=== PATIENT | female | born 1955 | race Two or more races ===

== ENCOUNTER 2017-10-08 00:31 | Emergency (ER) | payer OTHER ==
[~2017-10-08] VITALS: Ht 165.1 cm; Wt 81.6 kg
--- NOTE | 2017-10-08 00:35 | NUR ---
PT AMBULATED TO ER C/O HEADACHE, NECK PAIN, BACK PAIN, AND LEFT SHOUDLER PAIN. PT STATED SHE WAS AT WORK WHEN SHE SLIPPED AND FELL WHILE TRYING TO REACH FOR SOMETHING ABOVE AND HTI HER HEAD ON THE FLOOR. PT ALERT AND ORIENTED X 4. PT NOT VOMITING. PT BREATHING UNLABORED.
--- NOTE | 2017-10-08 00:40 | NUR ---
DR. PONCE AT PT BEDSIDE FOR MSE.
[2017-10-08] MEDS ORDERED: ONDANSETRON 4 MG/2 ML VIAL ONE ×2 (00:48→02:43)
[2017-10-08] MEDS ORDERED: MORPHINE SULFATE 4 MG/1 ML DISP.SYRIN ONE ×3 (00:55→02:42)
[2017-10-08] MEDS ORDERED: MORPHINE SULFATE 2 MG/1 ML DISP.SYRIN IV ONE (01:00)
[2017-10-08] MEDS ORDERED: ONDANSETRON 4 MG/2 ML VIAL IV ONE ×2 (01:00→02:45)
--- NOTE | 2017-10-08 01:00 | NUR ---
LAB AT BEDSIDE FOR BLOOD DRAW
--- NOTE | 2017-10-08 01:09 | NUR ---
PT TAKEN TO RADIOLOGY FOR CT. ACCOMPANIED BY JOHN NUNES.
[2017-10-08 01:16] LABS: BASOPHILS % (AUTO) 0.7 % (0.0-2.0); EOSINOPHILS # (AUTO) 0.6 K/uL (0.0-0.7); EOSINOPHILS % (AUTO) 8.5 % (0.0-7.0); HEMATOCRIT 39.2 % (31.2-41.9); HEMOGLOBIN 13.1 g/dL (10.9-14.3); LYMPHOCYTES # (AUTO) 2.4 K/uL (20.0-40.0); LYMPHOCYTES % (AUTO) 32.1 % (20.5-51.5); MEAN CORPUSCULAR HEMOGLOBIN 28.3 uug (24.7-32.8); MEAN CORPUSCULAR HGB CONC 34 g/dL (32.3-35.6); MEAN CORPUSCULAR VOLUME 84.6 fL (75.5-95.3); MONOCYTES # (AUTO) 0.5 K/uL (2.0-10.0); MONOCYTES % (AUTO) 6.9 % (0.0-11.0); NEUTROPHILS # (AUTO) 3.9 K/uL (1.8-8.9); NEUTROPHILS % (AUTO) 51.8 % (38.5-71.5); PLATELET COUNT (AUTO) 74 K/uL (179-408); RED BLOOD CELL COUNT(AUTO) 4.63 MIL/uL (3.63-4.92); WHITE BLOOD COUNT (AUTO) 7.4 K/uL (3.8-11.8)
[2017-10-08 01:26] LABS: CREATININE 0.7 mg/dL (0.6-1.3); POTASSIUM 3.6 mmol/L (3.5-5.1)
--- NOTE | 2017-10-08 01:56 | NUR ---
DR. PONCE AT BEDSIDE FOR REASSESSMENT.
[2017-10-08] MEDS ORDERED: MORPHINE SULFATE 4 MG/1 ML DISP.SYRIN IV ONE ×2 (02:00→02:45)
--- NOTE | 2017-10-08 02:05 | NUR ---
XRAY AT BEDSIDE FOR XRAY OF LEFT SHOULDER
[2017-10-08 02:27] LABS: EOSINOPHILS % (MANUAL) 10 % (0-8); LYMPHOCYTES % (MANUAL) 33 % (20-40); MONOCYTES % (MANUAL) 6 % (2-10); NEUTROPHILS % (MANUAL) 51 % (42-75)
--- NOTE | 2017-10-08 02:42 | NUR ---
APPLIED CERVICAL COLLAR PER MD.
--- NOTE | 2017-10-08 03:02 | NUR ---
PT WENT DOWN FOR CT CERVICAL SPINE. ACCOMPANIED BY MAX LOPEZ AND TERESITA LOPEZ.
--- NOTE | 2017-10-08 03:30 | NUR ---
PT BACK FROM CT SCAN. PT RESTING IN BED. AWAITING RESULTS
--- NOTE | 2017-10-08 04:20 | NUR ---
PT WAITING FOR SON TO PICK HER UP.
--- NOTE | 2017-10-08 05:52 | NUR ---
Patient discharged to home in stable conditon. Written and verbal after care instructions given. Patient verbalizes understanding of instructions. Patient left ER and walks in steady gait. Pt denies SOB, chest pain, dizziness, at this time. Pt states son will pick her up.
[2017-10-08 05:54] VITALS: BP 119/74
== END 2017-10-08 05:56 | disposition home or self-care (01) ==
LOC: ER 00:42
DX: S06.0X0A Concussion without loss of consciousness, initial encounter (principal); S49.92XA Unspecified injury of left shoulder and upper arm, initial encounter; S13.4XXA Sprain of ligaments of cervical spine, initial encounter; D69.6 Thrombocytopenia, unspecified; W01.0XXA Fall on same level from slipping, tripping and stumbling without subsequent striking against object, initial encounter; Y92.89 Other specified places as the place of occurrence of the external cause; Y93.89 Activity, other specified; Y99.8 Other external cause status
CPT/HCPCS: 36415; 70450; 72125; 73030; 85025; 85730; A4663; J2270; J2405; J7030

== ENCOUNTER 2017-12-11 10:08 | Emergency (ER) | payer OTHER ==
[~2017-12-11] VITALS: Ht 160 cm; Wt 81.6 kg
[2017-12-11] MEDS ORDERED: AMOXICILLIN (10:15)
[2017-12-11] MEDS ORDERED: IBUPROFEN (10:15)
--- NOTE | 2017-12-11 10:43 | NUR ---
PT IS IN ROOM #1B. DR NOVA EVALUATED THE PT.
[2017-12-11] MEDS ORDERED: KETOROLAC TROMETHAMINE 30 MG INJ IVP ONE (11:15)
[2017-12-11] MEDS ORDERED: CLINDAMYCIN PHOSPHATE IV 600 MG in IV DEXTROSE 5% 100 ML IV ONE (11:15)
[2017-12-11] MEDS ORDERED: DEXAMETHASONE SOD PHOSPHATE 4 MG INJ IV ONE (11:15)
[2017-12-11] MEDS ORDERED: DEXAMETHASONE SOD PHOSPHATE 10 MG INJ ONE (11:23)
[2017-12-11] MEDS ORDERED: KETOROLAC TROMETHAMINE 30 MG INJ ONE (11:23)
[2017-12-11] MEDS ORDERED: CLINDAMYCIN PHOSPHATE 600 MG/4 ML VIAL ONE (11:24)
[2017-12-11 11:32] LABS: BASOPHILS % (AUTO) 0.6 % (0.0-2.0); EOSINOPHILS # (AUTO) 0.8 K/uL (0.0-0.7); EOSINOPHILS % (AUTO) 9.8 % (0.0-7.0); LYMPHOCYTES # (AUTO) 1.9 K/uL (20.0-40.0); LYMPHOCYTES % (AUTO) 24.4 % (20.5-51.5); MEAN CORPUSCULAR HEMOGLOBIN 28.3 uug (24.7-32.8); MEAN CORPUSCULAR HGB CONC 33 g/dL (32.3-35.6); MEAN CORPUSCULAR VOLUME 84.8 fL (75.5-95.3); MONOCYTES # (AUTO) 0.6 K/uL (2.0-10.0); MONOCYTES % (AUTO) 7.2 % (0.0-11.0); NEUTROPHILS # (AUTO) 4.4 K/uL (1.8-8.9); PLATELET COUNT (AUTO) 64 K/uL (179-408); RED BLOOD CELL COUNT(AUTO) 4.59 MIL/uL (3.63-4.92); WHITE BLOOD COUNT (AUTO) 7.7 K/uL (3.8-11.8)
[2017-12-11 11:36] LABS: CREATININE 0.7 mg/dL (0.6-1.3); POTASSIUM 3.6 mmol/L (3.5-5.1)
[2017-12-11 11:42] LABS: BILIRUBIN,DIRECT 0.1 mg/dL (0.0-0.2); BILIRUBIN,TOTAL 0.5 mg/dL (0.2-1.0); TOTAL PROTEIN, SERUM 7.1 g/dL (6.4-8.2)
[2017-12-11 11:43] LABS: BAND % (MANUAL) 0 % (0-10); EOSINOPHILS % (MANUAL) 7 % (0-8); LYMPHOCYTES % (MANUAL) 26 % (20-40); MONOCYTES % (MANUAL) 7 % (2-10); NEUTROPHILS % (MANUAL) 60 % (42-75)
--- NOTE | 2017-12-11 12:32 | NUR ---
PT WAS D/C TO HOME. D/C INSTRUCTIONS GIVEN TO THE PT.
[2017-12-11 12:45] VITALS: BP 132/78
== END 2017-12-11 12:46 | disposition home or self-care (01) ==
LOC: ER 10:08
DX: L03.211 Cellulitis of face (principal); Z79.1 Long term (current) use of non-steroidal anti-inflammatories (NSAID); Z79.2 Long term (current) use of antibiotics
CPT/HCPCS: 36415; 70486; 80048; 80076; 83605; 84484; 85025; 85730; 87040 ×2; 96365; 96375; 99285; A4663; J1100; J1885; J3490 ×2; 70030-TC

== ENCOUNTER 2018-07-22 16:29 | Emergency (ER) | payer OTHER ==
[~2018-07-22] VITALS: Ht 162.6 cm; Wt 86.2 kg
[~2018-07-22 16:29] MED LIST: AMOXICILLIN; IBUPROFEN
--- NOTE | 2018-07-22 16:35 | NUR ---
ADMITTED A 63YO FEMALE, AMBULATORY IN 2B WITH A CHIEF C/O PAIN ON LEFT SHOULDER RADIATING TO HER CHEST. PAIN STARTED SINCE LAST NIGHT [employer]INE[employer]. COLOR IS GOOD, SKIN IS DRY AND WARM TO TOUCH. HR IS SR NO ECTOPY. EKG DONE.SEEN AND EXAMINED BY MD WITH NEW ORDER.
[2018-07-22] MEDS ORDERED: IBUPROFEN 800 MG TABLET PO ONE (16:45)
[2018-07-22 16:56] LABS: BASOPHILS # (AUTO) 0.1 K/uL (0.0-8.0); BASOPHILS % (AUTO) 1.4 % (0.0-2.0); EOSINOPHILS # (AUTO) 0.6 K/uL (0.0-0.7); EOSINOPHILS % (AUTO) 11.5 % (0.0-7.0); HEMATOCRIT 39.4 % (31.2-41.9); HEMOGLOBIN 12.9 g/dL (10.9-14.3); LYMPHOCYTES # (AUTO) 1.8 K/uL (20.0-40.0); LYMPHOCYTES % (AUTO) 32.1 % (20.5-51.5); MEAN CORPUSCULAR HEMOGLOBIN 27.8 uug (24.7-32.8); MEAN CORPUSCULAR HGB CONC 33 g/dL (32.3-35.6); MEAN CORPUSCULAR VOLUME 84.8 fL (75.5-95.3); MONOCYTES # (AUTO) 0.5 K/uL (2.0-10.0); MONOCYTES % (AUTO) 8.2 % (0.0-11.0); NEUTROPHILS # (AUTO) 2.6 K/uL (1.8-8.9); NEUTROPHILS % (AUTO) 46.8 % (38.5-71.5); PLATELET COUNT (AUTO) 69 K/uL (179-408); RED BLOOD CELL COUNT(AUTO) 4.64 MIL/uL (3.63-4.92); WHITE BLOOD COUNT (AUTO) 5.6 K/uL (3.8-11.8)
[2018-07-22 17:01] LABS: CREATININE 0.8 mg/dL (0.6-1.3); POTASSIUM 3.8 mmol/L (3.5-5.1)
[2018-07-22 17:07] LABS: BILIRUBIN,DIRECT 0.1 mg/dL (0.0-0.2); BILIRUBIN,TOTAL 0.3 mg/dL (0.2-1.0); TOTAL PROTEIN, SERUM 7.3 g/dL (6.4-8.2)
--- NOTE | 2018-07-22 17:10 | NUR ---
ALL LABS DRAWN. PT MEDICATED WITH MOTRIN 800MG ORALLY FOR C/O SHOULDER PAIN ORDERED. FEELS RELIEVED.
[2018-07-22 17:31] LABS: BAND % (MANUAL) 3 % (0-10); EOSINOPHILS % (MANUAL) 13 % (0-8); LYMPHOCYTES % (MANUAL) 33 % (20-40); MONOCYTES % (MANUAL) 7 % (2-10); NEUTROPHILS % (MANUAL) 44 % (42-75)
--- NOTE | 2018-07-22 17:50 | NUR ---
DISCHARGED INSTRUCTIONS AND PRESCRIPTION GIVEN TO PT AND THE FRIEND WITH GOOD UNDERSTANDING. DISCHARGED HOME AMBULATORY ACCOMPANIED BY HER FRIEND. CONDITION IS STABLE. PAIN IS RELIEVED.
[2018-07-22 18:44] VITALS: BP 19/59
== END 2018-07-22 17:50 | disposition home or self-care (01) ==
LOC: ER 16:29
DX: R07.89 Other chest pain (principal); M25.512 Pain in left shoulder; R11.0 Nausea; Z79.1 Long term (current) use of non-steroidal anti-inflammatories (NSAID); Z79.2 Long term (current) use of antibiotics
CPT/HCPCS: 36415; 70030-TC; 71045; 85025; 93005; A4663

== ENCOUNTER 2018-11-13 16:55 | Emergency (ER) | payer OTHER ==
[~2018-11-13] VITALS: Ht 162.6 cm; Wt 86.2 kg
--- NOTE | 2018-11-13 17:06 | NUR ---
DR Graham at the bedside for MSE.
[2018-11-13] MEDS ORDERED: diphenhydrAMINE 50 MG/1 ML VIAL ONE (17:25)
[2018-11-13] MEDS ORDERED: PROCHLORPERAZINE EDISYLATE 10 MG/2 ML VIAL ONE (17:26)
[2018-11-13] MEDS ORDERED: PROCHLORPERAZINE EDISYLATE 10 MG/2 ML VIAL IM ONE (17:30)
[2018-11-13] MEDS ORDERED: diphenhydrAMINE 50 MG/1 ML VIAL IM ONE (17:30)
[2018-11-13 18:36] VITALS: BP 140/87
--- NOTE | 2018-11-13 18:37 | NUR ---
Patient discharged to home in stable conditon. Written and verbal after care instructions given. Patient verbalizes understanding of instructions.
== END 2018-11-13 18:40 | disposition home or self-care (01) ==
LOC: ER 16:57
DX: R51 Headache (principal); H57.89 Other specified disorders of eye and adnexa; H53.8 Other visual disturbances; Z79.1 Long term (current) use of non-steroidal anti-inflammatories (NSAID); Z79.2 Long term (current) use of antibiotics
CPT/HCPCS: 36415; 85651; 96372 ×2; 99283; J0780; J1200; A4663